=== PATIENT | female | born 1980 | race African-American/Black ===

== ENCOUNTER 2018-07-24 19:59 | Emergency (ER) | payer BC ==
[~2018-07-24] VITALS: Ht 154.9 cm; Wt 66.7 kg
[2018-07-24] MEDS ORDERED: NAPROSYN500 MG PO (20:50)
[2018-07-24 21:05] VITALS: BP 128/77
== END 2018-07-24 21:05 | disposition home or self-care (01) ==
LOC: M.ERS 19:59
DX: S83.8X1A Sprain of other specified parts of right knee, initial encounter (principal); Z88.5 Allergy status to narcotic agent; Z88.1 Allergy status to other antibiotic agents; V28.4XXA Motorcycle driver injured in noncollision transport accident in traffic accident, initial encounter; Y93.55 Activity, bike riding; Y92.89 Other specified places as the place of occurrence of the external cause; Y99.8 Other external cause status